=== PATIENT | female | born 1995 | race Two or more races ===

== ENCOUNTER 2016-11-08 13:18 | Emergency (ER) | payer MEDICAID, OTHER ==
[~2016-11-08] VITALS: Ht 157.5 cm; Wt 47.6 kg
[~2016-11-08 13:18] MED LIST: ALBU8HFA4 INH
--- NOTE | 2016-11-08 13:47 | NUR ---
Patient discharged to home in stable conditon. Written and verbal after care instructions given to patient. Patient verbalizes understanding of instructions.
== END 2016-11-08 13:57 | disposition home or self-care (01) ==
LOC: ER 13:18
DX: J06.9 Acute upper respiratory infection, unspecified (principal); F41.9 Anxiety disorder, unspecified; J45.909 Unspecified asthma, uncomplicated
CPT/HCPCS: A4663